=== PATIENT | female | born 1950 | race Caucasian/White ===

== ENCOUNTER 2016-07-16 16:37 | Inpatient (IN) | payer MEDICARE, OTHER ==
[~2016-07-16] VITALS: Ht 172.7 cm; Wt 47.0 kg
[~2016-07-16 16:37] MED LIST: ALBUTEROL2.5 MG/3 M IH; ASA CHILDREN'S81 MG PO; ATIVAN-DPS0.5 MG PO; CELEXA10 MG PO; CORTISPORIN TC AU; DELTASONE DPS5 MG PO; DULERA 100 MCG/13 GM IH; GLUCAGON EMERGEN1 MG IM; GLUTOSE 1537.5 GM PO; HABITROL DPS21 MG TP; HUMALOG100 UNIT/1 SQ; LANTUS100 UNITS/ SQ; LASIX DPS20 MG PO; LASIX40 MG PO; LEVEMIR100 UNIT/1 SQ; LIDOCAINE 1% TD; PERCOCET 5-3251 EACH PO; SPIRIVA18 MCG IH; SYNTHROID75 MCG PO; VIBRAMYCIN-DPS100 M2 PO; VITAMIN B-121000 MCG PO; VITAMIN C500 M1 PO
--- NOTE | 2016-07-18 14:44 | ER ---
ADMIT: 07/16/2016 RM/LOC: 429 [facility] MR#: [id number] [address] [address] [place] [address] Emergency Room Report SEX: F AGE: 65 : 1950 DATE: Please refer to my T-sheet for complete H and P. HISTORY OF PRESENT ILLNESS: Briefly, the patient is a 65-year-old who comes in with cough, shortness of breath. She has a known history of COPD. She still smokes a pack of cigarettes a day. She wears oxygen when she remembers. She had to call in the ambulance because she gets more and more short of breath. She has had a fever too. PHYSICAL EXAMINATION: VITAL SIGNS: Her blood pressure is 131/70, pulse 138, respirations 23, temp 100.2, saturating 96%. GENERAL: She is cachectic. HEENT: Grossly normal. LUNGS: Decreased breath sounds throughout with wheezes and prolonged expiration. HEART: Tachycardic. Normal rhythm. No murmur. ABDOMEN: Soft. EXTREMITIES: No cyanosis, clubbing or edema. EMERGENCY DEPARTMENT COURSE: We did sepsis pathway. Sent blood cultures. CBC was normal except the hemoglobin of 11.3. Chemistries normal except BUN 40, glucose 108, creatinine 1.6. Cardiac enzymes negative. Lactate 1.4. UA was positive nitrite, otherwise negative. Coags were normal. She was given a nebulizer en route, she had, had one at home. She was given Decadron 10 IV here. We started antibiotics and Zosyn in the emergency department, and she had the Decadron given and she was improved, did not feel like she could go home. I talked to Dr. Coker, she will be admitted. ASSESSMENT: 1. Acute bronchitis. 2. Severe chronic obstructive pulmonary disease exacerbation. 3. Fever. There is an influenza that is pending. PLAN: Admit to the hospital. Fred Griffin MD/ joon JOB #: [id number] CC: Marci Coker MD, Attending Physician Marci Coker MD, Family Physician
--- NOTE | 2016-07-20 17:10 | HP ---
ADMIT: 07/16/2016 RM/LOC: 429 [facility] MR#: [id number] [address] [address] [place] [address] History and Physical SEX: F AGE: 65 : 1950 DATE OF SERVICE: CHIEF COMPLAINT: Cough and shortness of breath. HISTORY OF PRESENT ILLNESS: Ms. Antunez is a 65-year-old female. She has a past medical history significant for severe oxygen-requiring COPD, who continues to smoke as well as very poorly-controlled type 1 diabetes, who presented to the ER today with increasing cough and shortness of breath. She actually had called into our office and had reported that she was having increasing cough; therefore, we had offered her an appointment in the morning and has also called her in some antibiotics; however, it sounds as if she was just having increasing cough at home. She also was having trouble with fever and chills. Has not eaten or drank anything for the last 2 days. She notes that she just was feeling very poorly and therefore, felt warranted to come in and be evaluated. Upon evaluation here, apparently she had received 5 DuoNeb treatments. She reports that she is feeling somewhat better. She was just found to be hypoxemic on room air. She was put on a couple of liters, which improved. She was noted to have a fever. She was noted to be somewhat dehydrated, but otherwise no active infiltrate on her chest x-ray, but it was felt she warranted admission for further evaluation and treatment. PAST MEDICAL HISTORY: Significant for: 1. Severe COPD, on chronic O2. 2. Ongoing nicotine dependence. 3. Poorly-controlled diabetes mellitus type 1. 4. Interstitial cystitis. 5. 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 6. Hypothyroidism. 7. History of gastroparesis. 8. History of B12 deficiency. 9. Anxiety. 10.Diverticulosis of the colon. 11.Iron deficiency anemia. 12.Menopause. 13.Osteoporosis. 14.Peripheral vascular disease, status post stent, I think, x2 to her right leg. 15.History of MRSA. 16.Severe malnutrition. ALLERGIES: ALPRAZOLAM, CIPRO, HYDROXYZINE, MEPERIDINE, NICODERM, PEPCID, QUINOLONES, AND SULFA. MEDICATIONS: Currently are: 1. Albuterol. 2. DuoNeb. 3. Vitamin C 500 mg p.o. daily. 4. Wellbutrin 100 mg p.o. b.i.d. 5. Celexa 10 mg p.o. daily. ADMIT: 07/16/2016 RM/LOC: 429 [facility] MR#: [id number] [address] [address] [place] [address] History and Physical SEX: F AGE: 65 : 1950 6. B12 at 1000 mcg p.o. daily. 7. Lomotil. 8. Furosemide 60 mg p.o. daily. 9. Neurontin 100 mg p.o. b.i.d. 10.Insulin lispro daily. 11.Levothyroxine 88 mcg p.o. daily. 12.Ativan 0.5 p.o. b.i.d. p.r.n. 13.Omeprazole 40 mg p.o. daily. 14.Oxycodone 5/325, two p.o. daily p.r.n. FAMILY HISTORY: Grandfather with diabetes. Mother with heart disease and hypertension. SOCIAL HISTORY: She is a smoker. She is . Lives with her son currently. She does her own medications. REVIEW OF SYSTEMS: Obtained, was otherwise essentially negative. PHYSICAL EXAMINATION: GENERAL: She appears dyspneic. She is thin. She is cachectic. She is in no apparent distress. HEENT: Pupils are equal, round, reactive. Oropharynx has dry mucous membranes. NECK: Supple. HEART: Tachycardic rate with a regular rhythm. It is somewhat distant. LUNGS: Expiratory wheezes bilaterally. ABDOMEN: Thin, soft, bowel sounds are present. EXTREMITIES: Her fourth digit on the right toe has kind of a small ulceration. Bilateral feet are cold, right greater than left. ASSESSMENT AND PLAN: 1. Hypoxia with increased cough and fever, appears to be a chronic obstructive pulmonary disease exacerbation at this time. We will go ahead and treat her with IV steroids, IV antibiotics, and then get PT/OT to see as well as Nutrition. 2. Poorly-controlled diabetes. 3. Nicotine dependence. 4. General weight loss. 5. Peripheral vascular disease. In general, patient just overall has not been doing as well here lately. We will go ahead and ask Palliative Care to see also. Marci Coker MD/ joon JOB #: [id number] CC: Marci Coker, Attending Physician ADMIT: 07/16/2016 RM/LOC: 429 [facility] MR#: [id number] [facility] [address] [address] [place] [address] History and Physical SEX: F AGE: 65 : 1950 Marci Coker, Family Physician
--- NOTE | 2016-07-26 08:27 | CO ---
ADMIT: 07/16/2016 RM/LOC: 315 [facility] MR#: [id number] [address] [address] [place] [address] Consultation SEX: F AGE: 65 : 1950 DATE OF CONSULTATION: 07/23/2016 ATTENDING PHYSICIAN: Marci Coker CONSULTING PHYSICIAN: Kyra Weir APRN TIME IN: 12:15. TIME OUT: 12:40. REASON FOR CONSULTATION: Supportive Care consultation was requested by Dr. Coker for discussion of goals for care and family support. HISTORY OF PRESENT ILLNESS: Kacie is a 65-year-old female, who appears much older than her stated age. She has a history of severe COPD and continues to use tobacco. Also she has a history of peripheral vascular disease, poorly controlled diabetes mellitus type 1, and a history of vulvar cancer for which she has a diverting ileal stoma. She presented to the emergency room on July 16 with increasing shortness of breath and cough along with fevers. She was admitted with acute bronchitis and severe COPD exacerbation. Influenza screening was negative. She is a do not resuscitate/do not intubate status. She has been using the BiPAP intermittently. Currently, she is off BiPAP, but quite lethargic, therefore, she will likely be going back on BiPAP soon per the nurse. She also has severe malnutrition and is receiving tube feedings. Chest x-ray this morning revealed bilateral lower lobe opacities and emphysema. Her white count is up today to 11.8. Overall, she appears very weak and frail. Dr. Coker has been having discussions with family regarding goals. Supportive Care consultation was requested to assist with these conversations and also for family support. In terms of advanced directives, the patient is a do not resuscitate/do not intubate status. The patient's sister, Linnette Dawkins whose phone #[phone], is the patient's mlsej-bj-huerrbue for healthcare. The patient has a sister who lives in [place], Malini Johnson whose phone #[phone], who is her secondary power of collections attorney for healthcare. We do have on file the health care [id number] paperwork. It is noted that on that paperwork the patient did request that she not receive tube feedings and that was in May of 2010. Symptomatically, the patient is lethargic. She is weak and debilitated. She is not showing any signs or symptoms of pain or other complaints at this time. The patient's dad is present at the bedside and reports that she has been fairly comfortable today. PAST MEDICAL HISTORY: Severe COPD for which she is on O2, ongoing nicotine dependence, poorly controlled diabetes mellitus type 1, interstitial cystitis, history of cancer of the vulva with diverting ileal stoma, hypothyroidism, history of gastroparesis, vitamin B12 deficiency, anxiety, diverticulosis of the colon, iron-deficiency anemia, menopause, osteoporosis, peripheral ADMIT: 07/16/2016 RM/LOC: 315 [facility] MR#: [id number] [address] [place] [address] [place] [address] Consultation SEX: F AGE: 65 : 1950 vascular disease for which she has had stents, history of MRSA, severe malnutrition. ALLERGIES: THE PATIENT IS ALLERGIC TO ALPRAZOLAM, CIPRO, HYDROXYZINE, MEPERIDINE, NICODERM, PEPCID, QUINOLONES, AND SULFA. CURRENT MEDICATIONS: Please see the patient's MAR for specific routes and dosages. Her current medications are as follows. 1. NovoLog. 2. Levemir. 3. Glutose. 4. Glucagon. 5. D5 normal saline. 6. D50. 7. Omeprazole. 8. Neurontin. 9. Wellbutrin. 10.Colace. 11.Lovenox. 12.Half normal saline. 13.Haldol. 14.Dilaudid. 15.Vibramycin. 16.Mucomyst. 17.Dulera. 18.Solu-Medrol. 19.Celexa. 20.Synthroid. 21.Percocet. 22.DuoNeb. 23.Habitrol. 24.Atarax. 25.Proventil. 26.Maalox. 27.Tylenol. 28.Nitrostat. SOCIAL HISTORY: The patient lives at home with her son. She uses tobacco. I do not know if she uses alcohol. FAMILY HISTORY: Her grandfather was diabetic. Her mother has heart disease and hypertension. FUNCTIONAL REVIEW: Prior to her hospital stay, she was living at home with her son. It sounds like she was in the wheelchair most of the time per discussion with the patient's father. She did need considerable assistance with ADLs. Her palliative performance scale prior to admission was around 50%. Currently, she is in bed. She is pretty much total care and getting mouth care ADMIT: 07/16/2016 RM/LOC: 315 [facility] MR#: [id number] [address] [place] [address] [place] [address] Consultation SEX: F AGE: 65 : 1950 only. She is lethargic. Her current palliative performance scale is a 10% to 20%. REVIEW OF SYSTEMS: A 10-point review of systems was attempted. However, due the patient's mentation, it was unable to be obtained. PHYSICAL EXAMINATION: GENERAL: The patient is examined in the bed. She is in no acute distress. VITAL SIGNS: Temperature 97.6, pulse 111, respirations 12, blood pressure 122/58, and oxygen 100% on O2 via nasal cannula. HEENT: Head is normocephalic. Pupils are 3 mm. Oral mucosa pink and moist with fair dentition. NECK: Supple. RESPIRATORY: Respirations are equal and nonlabored. LUNGS: Diminished throughout. CARDIOVASCULAR: Rate and rhythm regular without murmurs, rubs, or gallops. GASTROINTESTINAL: She is very thin. Bowel sounds are hypoactive. MUSCULOSKELETAL: Generalized weakness. INTEGUMENTARY: Skin turgor is poor. Her skin is very thin and fragile. NEUROLOGIC: She is lethargic. She will not answer questions for me. PSYCHIATRIC: Calm. No agitation noted. DIAGNOSTIC DATA: Sodium 144, potassium 4.7, BUN 50, creatinine 1.2, total protein 5.2, and albumin 2.2. WBC 11.9, hemoglobin 8.7, hematocrit 30.5, and platelets 166. IMPRESSION: 1. Debility. 2. Lethargy. 3. Fatigue. 4. Malaise. 5. Severe protein-calorie malnutrition. 6. End-stage chronic obstructive pulmonary disease. 7. Respiratory failure. 8. Diabetes mellitus type 1. 9. History of vulvar cancer with diverting ileal stoma. 10.Tobacco abuse. 11.Palliative care. 12.The patient is a do not resuscitate/do not intubate. PLAN: At the time of assessment, the patient is not able to participate in medical decision making due to her mentation. I was able to meet with the patient's father who is at the bedside. He states that the family has been told by Dr. Coker that the patient may not do well in the time ahead. He is hopeful for improvement, but understands that ongoing goals for care discussions will be had. He understands Dr. Coker has had Pulmonary come see the patient today for evaluation and prognostication. He agrees to ongoing discussions in the time ahead pending the patient's status. I did try to reach ADMIT: 07/16/2016 RM/LOC: 315 [facility] MR#: [id number] [address] [place] [phone] [place] [address] Consultation SEX: F AGE: 65 : 1950 the patient's [id number]-[id number] and sister, Linnette, however, there was no answer and I could not leave a voice mail due to the fact that her voice mailbox was a generic message. Therefore, I was not certain that it was actually her phone number. I will continue to try and reach her in the time ahead. I know Dr. Coker has had extensive discussions with the family. I will continue to help with those in the time ahead. The patient is certainly hospice eligible should the family decide to go that route. In the meantime, until we can have further goals for care discussions, the patient will continue to wear BiPAP as needed and this is discussed with the nurse. We will continue to follow along. We would like to thank Dr. Coker for the invitation to participate in this patient's care. Total consultation time was 25 minutes from 1215 hours to 1240 hours with 15 minutes from 1215 hours to 1230 hours spent [id number] with the patient in the room and her dad discussing goals and status. We will continue to follow. Kyra Weir APRN/ joon JOB #: [id number] CC: Marci Coker, Attending Physician Marci Coker, Family Physician
--- NOTE | 2016-09-04 09:34 | DS ---
ADMIT: 07/16/2016 RM/LOC: 418 [facility] MR#: [id number] [facility] [address] [address] [place] [address] Discharge Summary SEX: F AGE: 65 : 1950 ADMISSION DATE: 07/16/2016 DISCHARGE DATE: 08/02/2016 FINAL DIAGNOSES: 1. Cough. 2. Shortness of breath. 3. COPD (chronic obstructive pulmonary disease) with acute exacerbation. 4. Nicotine dependence. 5. Poorly controlled diabetes mellitus type 1. 6. Interstitial cystitis. 7. History of vulvar cancer. 8. Hypothyroidism. 9. Protein calorie malnutrition. 10.History of gastroparesis. 11.History of B12 deficiency. 12.Anxiety. 13.Iron deficiency anemia. 14.Peripheral vascular disease. 15.Osteoporosis. 16.History of MRSA (methicillin-resistant Staphylococcus aureus). 17.History of recent weight loss. 18.Respiratory failure, acute. 19.Hypoxic and hypercarbic respiratory failure. 20.Diabetic ketoacidosis. 21.Comfort care. HOSPITAL COURSE: The patient was admitted through the ER with cough and increased shortness of breath. She was placed on some IV steroids as well as IV antibiotics. She really was not eating well, and she was kind of confused. By the next morning, her blood sugars were high and she developed DKA. ADMIT: 07/16/2016 RM/LOC: 418 [facility] MR#: [id number] [address] [place] [phone] [place] [address] Discharge Summary SEX: F AGE: 65 : 1950 Overall, patient was then transferred to the ICU. She actually improved some but then just overall patient was not eating well and really was not doing very well. Her family wanted full support and so a Dobbhoff was placed. She did pull this out, and then we had long discussions with the family. It was found that she had legal documentation stating that she never wanted to have a tube feed. After that, Speech did come to see the patient but the patient was high risk for aspiration. However, due to patient's family's insistence, we did let her eat with some comfort foods and she would just aspirate each time. Otherwise, there were long discussions and the plan was for patient to be made more comfort care. The family was at her bedside and was comfortable with this. I spent over 35 minutes in the care of this patient with regard to her discharge summary. Marci Coker MD/ ankita JOB #: [id number] CC: Marci Coker MD, Attending Physician Marci Coker MD, Family Physician
--- NOTE | 2016-09-11 16:03 | CO ---
ADMIT: 07/16/2016 RM/LOC: 315 [facility] MR#: [id number] [address] [address] [place] [address] Consultation SEX: F AGE: 65 : 1950 DATE OF CONSULTATION: 07/23/2016 ATTENDING PHYSICIAN: Marci Coker CONSULTING PHYSICIAN: James Camacho MD HISTORY OF PRESENT ILLNESS: A 65-year-old white female, smoker, type 1 diabetic, end-stage COPD O2 dependent, who presented with several day history of marked increased shortness of breath, cough, fever, chills, decreased p.o. intake, but no recorded nausea, vomiting, or diarrhea. Currently, the patient is actually experiencing constipation. The patient had treatment in the emergency room initially and did have a subjective significant improvement with multiple DuoNeb treatments (five). Now, has been on BiPAP 12/5, tidal volumes range 500 to 700, respiratory rate 16 (backup 10). The patient has more limited responsiveness per staff when off BiPAP. PAST SURGICAL HISTORY AND PAST MEDICAL HISTORY: As per chart. History of diverting ileostoma (cancer of vulva), cystoscopy peripheral vascular disease, status post stents x2, right leg. Illnesses: Severe COPD O2 dependent, type 1 diabetes, interstitial cystitis, cancer of vulva, hypothyroidism, gastroparesis, B12 deficiency, anxiety, diverticulosis, iron deficiency, menopause, osteoporosis, MRSA, and severe malnutrition. ALLERGIES: 1. ALPRAZOLAM. 2. CIPRO. 3. HYDROXYZINE. 4. MEPERIDINE. 5. NICODERM. 6. PEPCID. 7. QUINOLONES. 8. SULFA. MEDICATIONS: Reviewed in [facility]. FAMILY HISTORY: Noncontributory. SOCIAL HISTORY: , resides with son. Tobacco, current. Alcohol, unknown. REVIEW OF SYSTEMS: A 12-point reviewed to the extent possible was obtained discussion with nurse, review of chart, and limited assistance by father. PHYSICAL EXAMINATION: GENERAL: Reasonably stable. VITAL SIGNS: Blood pressure 118/64, pulse is 125, respiratory rate 14, ADMIT: 07/16/2016 RM/LOC: 315 [facility] MR#: [id number] [address] [address] [place] [address] Consultation SEX: F AGE: 65 : 1950 temperature is 99.2, sats 95% on 2 L face mask. HEENT: Nares and throat are dry and clear. Dobhoff is in place. No lymphadenopathy or JVD. HEART: Regular rate and rhythm. LUNGS: Slightly prolonged expiratory phase, but no marked wheezing, slightly decreased in the bases. ABDOMEN: Soft, nontender. No definite hepatosplenomegaly, borderline clubbing. Erythematous features over much of the extremities. Motor and sensory grossly intact. LABORATORY DATA: On 07/20/2016; ABG 7.35, pCO2 of 54, PO2 of 127 on 5 L. On 07/23/2016; BUN 50, creatinine 1.2, glucose 66, CO2 is 34, sodium 144, potassium is 4.7, albumin 2.2, LD 340. On 07/23/2016; WBC 11.9, hemoglobin 8.7, platelets 166. Chest x-ray, bilateral lower lobe opacities thought to represent pneumonia. ASSESSMENT: 1. Emphysema. 2. End-stage chronic obstructive pulmonary disease-agree with the current management of same. The patient will have Solu-Medrol decreased to 60 mg IV q.12. Continue DuoNeb q.4h, and Mucomyst 2 mL b.i.d. 3. Bilateral pneumonia. I agree with the current treatment of Vibramycin 100 mg p.o. b.i.d. 4. Health care maintenance. The patient is on omeprazole and Lovenox. 5. Diabetes-as per primary on insulin. 6. DNR/DNI. 7. Long discussion with the patient's RN and RT ensued. The patient's BiPAP has satisfactory volumes at 12/5 to 12/6 when used. Volumes are ranged 500 to 700, respiratory rate back up is 10, typically breathing 16 to 18. PROGNOSIS: The patient's overall prognosis is very guarded. Hospice would certainly be a consideration. James Camacho MD/ joon JOB #: [id number] CC: Marci Coker, Attending Physician Marci Coker, Family Physician Marci Coker MD
== END 2016-08-02 06:30 | disposition expired | DRG 190 ==
LOC: ER 16:37 → 3ICU 18:30 → 4PCU 18:30 → 3ICU 07-17 12:40 → 4PCU 07-28 16:33
PROVIDERS: ADMIT Internal Medicine
PROC: 3E0G76Z Introduction of Nutritional Substance into Upper GI, Via Natural or Artificial Opening (ICD-10-PCS; principal; 2016-07-21)
DX: J44.1 Chronic obstructive pulmonary disease with (acute) exacerbation (principal); E43 Unspecified severe protein-calorie malnutrition; J96.21 Acute and chronic respiratory failure with hypoxia; E10.11 Type 1 diabetes mellitus with ketoacidosis with coma; N17.9 Acute kidney failure, unspecified; G93.41 Metabolic encephalopathy; R13.10 Dysphagia, unspecified; J96.22 Acute and chronic respiratory failure with hypercapnia; E87.0 Hyperosmolality and hypernatremia; Z68.1 Body mass index [BMI] 19.9 or less, adult; Z51.5 Encounter for palliative care; E10.65 Type 1 diabetes mellitus with hyperglycemia; N30.10 Interstitial cystitis (chronic) without hematuria; E10.649 Type 1 diabetes mellitus with hypoglycemia without coma; K59.00 Constipation, unspecified; F41.9 Anxiety disorder, unspecified; I73.9 Peripheral vascular disease, unspecified; F17.210 Nicotine dependence, cigarettes, uncomplicated; Z99.81 Dependence on supplemental oxygen; E03.9 Hypothyroidism, unspecified; K57.90 Diverticulosis of intestine, part unspecified, without perforation or abscess without bleeding; M81.0 Age-related osteoporosis without current pathological fracture; Z86.14 Personal history of Methicillin resistant Staphylococcus aureus infection; Z85.89 Personal history of malignant neoplasm of other organs and systems; Z93.2 Ileostomy status; Z66 Do not resuscitate; Z95.820 Peripheral vascular angioplasty status with implants and grafts